=== PATIENT | female | born 1980 | race Asian ===

== ENCOUNTER 2021-02-02 17:52 | Emergency (ER) | payer OTHER, SELFPAY ==
[2021-02-02 17:56] VITALS: BP 119/69; PULSE 94; RESP 12; TEMP 37.1; O2SAT 100
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
== END 2021-02-02 18:39 | disposition home or self-care (01) ==
PROVIDERS: Emergency Provider Nurse Practitioner
DX: S01.511A Laceration without foreign body of lip, initial encounter (principal); W51.XXXA Accidental striking against or bumped into by another person, initial encounter; G40.A09 Absence epileptic syndrome, not intractable, without status epilepticus
CPT/HCPCS: 12011; 99212; G0463

== ENCOUNTER 2021-12-26 09:39 | Observation (INO) | payer OTHER, SELFPAY ==
--- NOTE | 2021-12-26 10:00 | PC.NURSE ---
spoke to Dr. Robins and notified walk in pt for Nausea and vomiting. Order received for IV fluid and zofran. may discharge to home when pt feels better and tolerating with PO
[2021-12-26] MEDS: DEXTROSE 5%/LACTATED RINGERS 1,000 ML 999 ML IV CONT (10:25)
[2021-12-26] MEDS: ONDANSETRON INJ 4 MG/2 ML VIAL IV PUSH (10:25)
--- NOTE | 2022-01-18 20:11 | PM.OBTRLD ---
OB - Triage/Final Diagnosis Visit Information Comments/Additional reasons for admission: I have assessed the risk for this patient, Amara Chapa, and determined that she would benefit from observation care. Final Diagnosis (1) Nausea/vomiting in : Code(s): O21.9 - Vomiting of , unspecified Status: Acute
== END 2021-12-26 12:17 | disposition home or self-care (01) ==
PROVIDERS: Admitting Provider Obstetrics & Gynecology; PCP Family Medicine; Visit Provider Obstetrics & Gynecology
DX: O21.9 Vomiting of pregnancy, unspecified (principal); Z3A.20 20 weeks gestation of pregnancy
CPT/HCPCS: 96374; G0378; G0379; J2405; J7121

== ENCOUNTER 2023-05-17 08:03 | Emergency (ER) | payer OTHER, SELFPAY ==
--- NOTE | 2023-05-17 08:09 | ED.EAR ---
HPI - Ear Problem General Chief complaint: Ear Stated complaint: Ear pain Time Seen by Provider: 05/17/23 08:09 Source: patient Mode of arrival: ambulatory Limitations: no limitations History of Present Illness HPI Narrative: Amara is a 42-year-old female patient presenting to the clinic today with complaints bilateral ear lobe pain x1 week. She reports no change in earring jewelry. No change in soaps or shampoos. Denies any fever, chills, or body aches. States that the area is crusting and draining some clear/white fluid. Area is very tender to touch and feels warm. Is having trouble sleeping at night due to putting pressure on her ear lobes. Has cleaned her ears using hydrogen peroxide and has applied Neosporin to the affected areas.. Related Data Home Medications Medication Instructions Recorded Confirmed lamotrigine 200 mg tablet,extended 400 mg PO BID 11/04/20 05/17/23 release 24 hr (Lamictal XR) levetiracetam 1,000 mg 2,500 mg PO .Q12hr 11/04/20 05/17/23 tablet,extended release 24 hr Allergies Allergy/AdvReac Type Severity Reaction Status Date / Time No Known Allergies Allergy Verified 05/17/23 08:11 Review of Systems Review of Systems: Pertinent positives per HPI. Patient denies any fever, chills, rash, headache, visual changes, dizziness, cough, shortness of breath, chest pain, palpitations, nausea, vomiting, diarrhea, constipation, abdominal pain, or any urinary issues. PMFSH Past Medical History Medical History Petit mal seizure status Seasonal allergies Vitamin D deficiency Surgical History Surgical History History of 2017 Hx of LASIK 2011 - b/l eyes Social History Social History Smoking status: Never smoker Alcohol intake: never Substance use: never Substance use type: does not use Living arrangements: with family Additional living arrangements comments: and son Occupation/Education: unemployed Additional occupation/education comments: Homemaker Gender identity (if verbalized by the patient): Female Sexual Orientation (if Verbalized by the Patient): Straight or Heterosexual Comments At the time of my signature, I reviewed and agree with the nursing past medical, surgical, social, and family history. There is no relevant family history pertinent to the patient complaint. Exam Narrative: General: Well-developed, well nourished, in no apparent distress Head: Normocephalic, atraumatic Eyes: Pupils equally round and reactive to light bilaterally, EOM intact, sclera and conjunctive clear, no discharge, lids normal Ears: TMs intact and mild bulging, ear canals clear, no drainage, grossly hearing normal. Redness and swelling to bilateral ear lobes with piercings in place. Crusty yellow discharge around the piercings. Nose: Nares patent, no discharge, no inflammation, no sinus tenderness. Mouth: Oral pharynx without lesions or masses, good dentition, MMM. Neck: Supple, trachea midline, no enlargement of anterior or posterior cervical nodes, no thyroid masses or goiter palpable. Cardio: Regular rate and rhythm, s1 and s2 normal, no murmur appreciated. Resp: Clear to auscultation bilaterally, no rhonchi, rales, wheezing or rubs Course Course Emergency Course: Portions of this record may have been created with voice recognition software. Level of Care: Express Care Visit Vital Signs Vital signs: Vital signs reviewed Medical Decision Making MDM Narrative Medical decision making narrative: At the time of visit patient is resting comfortably on the exam table. Patient appears to be nontoxic. Plan: I suspect patient has ear lobe infection. Prescription for mupirocin cream was sent to the pharmacy. Supportive measures were discussed with the patient a
[2023-05-17 08:10] VITALS: BP 116/75; PULSE 99; RESP 16; TEMP 36.8; O2SAT 100
== END 2023-05-17 08:31 | disposition home or self-care (01) ==
PROVIDERS: Emergency Provider Nurse Practitioner Family; PCP Family Medicine
DX: L08.9 Local infection of the skin and subcutaneous tissue, unspecified (principal); E55.9 Vitamin D deficiency, unspecified
CPT/HCPCS: 99213; G0463

== ENCOUNTER 2023-09-03 19:39 | Emergency (ER) | payer OTHER, SELFPAY ==
[2023-09-03 19:45] VITALS: BP 106/64; PULSE 93; RESP 19; TEMP 36.2; O2SAT 100
--- NOTE | 2023-09-03 20:06 | ED.GENADULT ---
HPI - General Adult General Chief complaint: Unspecified Stated complaint: Lice Time Seen by Provider: 09/03/23 19:50 Source: patient and RN notes reviewed Mode of arrival: ambulatory Limitations: no limitations History of Present Illness HPI narrative: Patient presents today requesting an exam of her scalp for head lice. She was notified today of a family member that was diagnosed with head lice that she was exposed to a few days ago. Denies itching. Three other family members present for scalp exam as well Related Data Home Medications Medication Instructions Recorded Confirmed lamotrigine 200 mg tablet,extended 400 mg PO BID 11/04/20 05/26/23 release 24 hr (Lamictal XR) levetiracetam 1,000 mg 2,500 mg PO .Q12hr 11/04/20 05/26/23 tablet,extended release 24 hr clonazepam 0.5 mg tablet mg PO PRN 05/26/23 05/26/23 folic acid 1 mg tablet 1 mg PO DAILY 05/26/23 05/26/23 Allergies Allergy/AdvReac Type Severity Reaction Status Date / Time No Known Allergies Allergy Verified 05/26/23 08:57 Review of Systems Review of Systems: CONSTITUTIONAL: Denies body aches, fever, chills, or sweats. EYES: Denies visual changes, redness, or discharge. ENT: Denies rhinorrhea, congestion, sore throat, or otalgia. CARDIOVASCULAR: Denies chest pain, palpitations, or edema. RESPIRATORY: Denies cough or dyspnea. GASTROINTESTINAL: Denies abdominal pain, nausea, vomiting, or diarrhea. GENITOURINARY: Denies dysuria or hematuria. SKIN: Denies rash, itching, or wounds. MUSCULOSKELETAL: Denies back pain, joint pain, or myalgia. NEUROLOGIC: Denies headache, numbness, tingling, or weakness. PSYCH: Denies depression or anxiety. [facility] Past Medical History Medical History Petit mal seizure status Seasonal allergies Skin of left earlobe with infection Vitamin D deficiency Surgical History Surgical History History of 2017 Hx of LASIK 2011 - b/l eyes Social History Social History Smoking status: Never smoker Alcohol intake: never Substance use: never Substance use type: does not use Living arrangements: with family Additional living arrangements comments: and son Occupation/Education: unemployed Additional occupation/education comments: Homemaker Gender identity (if verbalized by the patient): Female Sexual Orientation (if Verbalized by the Patient): Straight or Heterosexual Comments Reviewed Exam Narrative: GENERAL: Well-appearing, well-nourished, and in no acute distress. HEAD: Normocephalic, atraumatic. EYES: EOMI. No redness or drainage. Conjunctivae normal. ENT: Mucous membranes pink and moist. NECK: Normal AROM. CHEST: No respiratory distress. EXTREMITIES: Normal range of motion. No edema. SKIN: Warm, dry, no rash. Capillary refill normal. Normal skin turgor. Scalp exam normal NEURO: No focal deficits. Alert and oriented x3. Gait steady. PSYCH: Normal affect. No signs of depression or anxiety. Course Course Level of Care: Express Care Visit Vital Signs Vital signs: Vital Signs Temperature 97.1 F L 09/03/23 19:45 Pulse Rate 93 09/03/23 19:45 Respiratory Rate 19 09/03/23 19:45 Blood Pressure 106/64 09/03/23 19:45 Pulse Oximetry 100 09/03/23 19:45 Temperature 97.1 F L 09/03/23 19:45 Pulse Rate 93 09/03/23 19:45 Respiratory Rate 19 09/03/23 19:45 Blood Pressure 106/64 09/03/23 19:45 Pulse Oximetry 100 09/03/23 19:45 Reviewed Medical Decision Making MDM Narrative Medical decision making narrative: Scalp exam normal. Anticipatory guidance given. Differential Diagnosis Differential Diagnosis: Head lice Vital Signs Vital Signs: Vital Signs Temperature 97.1 F L 09/03/23 19:45 Pulse Rate 93 09/03/23 19:45 Respiratory Rat
== END 2023-09-03 20:04 | disposition home or self-care (01) ==
PROVIDERS: Emergency Provider Nurse Practitioner
DX: Z20.7 Contact with and (suspected) exposure to pediculosis, acariasis and other infestations (principal); G40.A09 Absence epileptic syndrome, not intractable, without status epilepticus
CPT/HCPCS: 99211; G0463

== ENCOUNTER 2023-10-28 09:07 | Outpatient (CLI) | payer OTHER, SELFPAY ==
[2023-10-28 19:46] LABS: T4 Thyroxine 7.09 ug/dL (5.53-11.0)
== END 2023-10-28 09:08 | disposition home or self-care (01) ==
LOC: ANHGOSHLAB 09:08
PROVIDERS: Visit Provider Nurse Practitioner Family
DX: E03.9 Hypothyroidism, unspecified (principal)
CPT/HCPCS: 36415; 84436; 84443

== ENCOUNTER 2025-01-19 08:59 | Emergency (ER) | payer OTHER, SELFPAY ==
[2025-01-19 09:07] VITALS: BP 116/79; PULSE 94; RESP 16; TEMP 36.6; O2SAT 100
--- NOTE | 2025-01-19 09:23 | ED_ITS ---
HPI - URI/Sore Throat General Chief Complaint: Upper Respiratory Infection Stated Complaint: sinus congestion Time Seen by Provider: 01/19/25 09:23 Source: patient, RN notes reviewed and old records reviewed Mode of arrival: ambulatory Limitations: no limitations History of Present Illness HPI Narrative: 44 year old female who presents to [facility] care with over 1 week duration of sinus congestion. drainage, sinus pressure, intermittent frontal headache, and productive cough. Patient reports she has been taking Zyrtec and Benadryl for her symptoms along with taking Tylenol sinus and cold without resolution of symptoms. patient does have state history of seasonal allergies and previous sinusitis. Patient reports no shortness of breath, no body aches, no GI symptoms. MD elicited complaint: fever, cough, rhinorrhea, nasal congestion and sinus pain Pertinent past history: seasonal allergies Onset (ago): week(s) ( greater than 1 week) Severity: moderate Able to tolerate fluids by mouth: Yes Treatments prior to arrival: other ( Zyrtec, Benadryl, Tylenol Sinus and cold) Related Data Home Medications ?Medication ?Instructions ?Recorded ?Confirmed ?Last Taken ?Type lamotrigine 200 mg tablet,extended 400 mg PO BID 11/0401/19/25 Unknown History release 24 hr (Lamictal XR) levetiracetam 1,000 mg 2,500 mg PO .Q12hr 11/04/20 01/19/25 Unknown History tablet,extended release 24 hr clonazepam 0.5 mg tablet 0.5 mg PO DIRECTED PRN An xiety 05/26/23 01/19/25 Unknown History folic acid 1 mg tablet 1 mg PO DAILY 05/26/2301/19 Unknown History lamotrigine 50 mg tablet,extended mg PO 01/19/25 Unkn own History release 24 hr Allergies Allergy/AdvReac Type Severity Reaction Status Date / Time No Known Allergies Allergy Verified 01/19/25 09:10 Review of Systems Review of Systems: CONSTITUTIONAL: reports malaise, no recent chills, sweats, or fever, did have 1 day of low-grade fevers EYES: Denies visual changes, redness, or discharge. ENT: Reports rhinorrhea, congestion, sinus pain, no otalgia and no sore throat. CARDIOVASCULAR: Denies chest pain, palpitations, or edema. RESPIRATORY: Reports productive cough.? Denies dyspnea. GASTROINTESTINAL: Denies abdominal pain, nausea, vomiting, diarrhea SKIN: Denies rash or itching. MUSCULOSKELETAL: Denies myalgia. NEUROLOGIC: positive frontal headache. All systems reviewed & are unremarkable except as noted in HPI and below PMFSH Past Medical History Medical History Sinusitis Anxiety Vitamin D deficiency Seasonal allergies Petit mal seizure status Surgical History Surgical History Hx of LASIK 2011 - b/l eyes History of 2017 Social History Social History Smoking status: Never smoker Alcohol intake: never Substance use: never Substance use type: does not use Living arrangements: with family Additional living arrangements comments: and son Occupation/Education: unemployed Additional occupation/education comments: Homemaker Gender identity (if verbalized by the patient): Female Sexual Orientation (if Verbalized by the Patient): Straight or Heterosexual Comments At time of signature, agree with nursing past medical, surgical, social and family history. There is no relevant family history pertinent to the presenting complaint Exam Narrative: GENERAL: Well-appearing, well-nourished, and in no acute distress. HEAD: Normocephalic EYES: PERRLA, conjunctivae clear ENT: Nares red, turbinates edematous and erythematous, light yellow discharge. Mucous membranes moist. TM pearly cunningham with dull light reflex bilaterally; no tragal tenderness. Oropharynx erythematous without lesions. Tonsils not enlarged and without exudate, no drooling, no hoarseness, no trismus, uvula midline. NECK: Supple. No lymphadenopathy CHEST: Clear to auscultation, breath sounds equal. No wheezing, rhonchi, rales, or stridor. No respiratory distress, speaks in full sentences.productive cough SAO2 100% on room air HEART: Regular rate and rhythm. No murmur heard. SKIN: Warm, dry, no rash. NEURO: Alert and oriented x3. PSYCH: Normal mood and affect Course Course Emergency Course: Patient is aware of diagnosis, understands and agrees to treatment plan.? Anticipatory guidance given.? Patient agrees to follow-up as directed and is aware of reasons to seek care at the emergency department. Portions of this record may have been created with voice recognition software Level of Care: Express Care Visit Vital Signs Vital signs: Vital Signs Temperature 36.6 C 01/19/25 09:07 Pulse Rate 94 01/19/25 09:07 Respiratory Rate 16 01/19/25 09:07 Blood Pressure 116/79 01/19/25 09:07 Pulse Oximetry 100 01/19/25 09:07 Temperature 36.6 C 01/19/25 09:07 Pulse Rate 94 01/19/25 09:07 Respiratory Rate 16 01/19/25 09:07 Blood Pressure 116/79 01/19/25 09:07 Pulse Oximetry 100 01/19/25 09:07 Oxygen Delivery Room Air 01/19/25 09:11 Reviewed MDM - URI/Sore Throat MDM Narrative Medical decision making narrative: Differential diagnosis considered: [place] virus, strep pharyngitis, allergic rhinitis, upper respiratory tract infection, sinusitis, rhinosinusitis, nasopharyngitis. viral pharyngitis, otitis media, otitis externa, pneumonia, bronchitis, viral cough syndrome, viral syndrome, and influenza.? Exam findings show no acute concerns or changes; patient is non-toxic appearing and is in no distress.? Patient is appropriate for outpatient treatment and follow-up. Differential Diagnosis Differential diagnosis: Likely upper respiratory infection, sinusitis, viral infection and other (rhinosinusitis) Medical Records Attestation: I reviewed the patient's medical records. Lab Data Attestation: I reviewed the patient's lab results. Critical Care Time Critical Care Time Critical Care Time: No Discharge Plan Discharge Clinical Impression: Sinusitis Qualifiers: Sinusitis location: pansinusitis Chronicity: acute Recurrence: not specified as recurrent Qualified Code(s): J01.40 - Acute pansinusitis, unspecified Patient Disposition: Home Condition: Stable Instructions: Antibiotic Form, Sinusitis (ED) Additional Instructions: Increase fluids especially juices and water [id number] cough and cold medicine of your choice for your symptoms Zyrtec,Claritin or Norma daily and include plain Sudafed in a.m. heat to the face 20-30 minutes 4-6 times a day for pain Salt water gargles, throat lozenges or throat sprays as desired Antibiotic as directed--finish the medication If your symptoms persist, change or worsen significantly before you can contact your personal physician then please, without delay, go to the emergency department for further evaluation. Follow-up with PCP in 7-10 days or sooner if needed Patient Language: [place] Prescriptions: New amoxicillin-pot clavulanate 875-125 mg tablet 1 tablet PO Q12H Qty: 20 0RF Rx Instructions: take with food recommend taking a daily probiotic while on this medication No Action lamotrigine 50 mg tablet extended release 24hr PO folic acid 1 mg tablet 1 mg PO DAILY clonazepam 0.5 mg tablet 0.5 mg PO DIRECTED PRN (Reason: Anxiety) lamotrigine [Lamictal XR] 200 mg tablet extended release 24hr 400 mg PO BID levetiracetam 1,000 mg tablet extended release 24 hr 2,500 mg PO .Q12hr cholecalciferol (vitamin D3) 50 mcg (2,000 unit) capsule 100 mcg PO DAILY Qty: 60 0RF Follow-up/Referrals: Syed,Gary Garcia MD [Primary Care Provider, Unknown] Time of Disposition: 09:34 Quality [place] Coma Scale Eyes: Open Verbal: Oriented and Alert Motor: Follows Commands [place] Coma Total Score: 15
== END 2025-01-19 09:39 | disposition home or self-care (01) ==
PROVIDERS: Emergency Provider Registered Nurse; PCP Family Medicine
DX: J01.40 Acute pansinusitis, unspecified (principal); F41.9 Anxiety disorder, unspecified; E55.9 Vitamin D deficiency, unspecified; G40.A09 Absence epileptic syndrome, not intractable, without status epilepticus
CPT/HCPCS: 99213; G0463